=== PATIENT | female | born 1945 | race Caucasian/White ===

== ENCOUNTER 2017-11-25 15:13 | Emergency (ER) | payer MEDICARE, OTHER ==
[2017-11-25 15:35] VITALS: BP 141/63
--- NOTE | 2017-11-25 17:19 | ED Physician Documentation ---
PD HPI URI - Stated complaint Stated Complaint: COUGH,DRY MOUTH,TIRED - Chief complaint Chief Complaint: Resp - History obtained from History obtained from: Patient - History of Present Illness Timing - onset: How many months ago (1) Timing duration: Months (1) Timing details: Gradual onset (has had cough for a month, and was on 2 different abx for it (finishing doxy now) without improvement. No steroids. no inhaler. Still having cough and feeling wheezing.) Associated symptoms: Dry cough, Dyspnea. No: Fever, Chills, NVD Contributing factors: No: Sick contact, Travel Recently seen: Clinic (was given abx for her cough, had zpack without improvement, and now on Doxy.) Review of Systems Constitutional: denies: Fever Nose: denies: Rhinorrhea / runny nose, Congestion Throat: denies: Sore throat Cardiac: denies: Chest pain / pressure Respiratory: reports: Dyspnea, Cough, Wheezing GI: denies: Nausea, Vomiting, Diarrhea Skin: denies: Rash, Lesions PD PAST MEDICAL HISTORY - Past Medical History Cardiovascular: Atrial fibrillation Endocrine/Autoimmune: Type 2 diabetes GI: GERD - Past Surgical History Past Surgical History: Yes Ortho: Knee replacement HEENT: Tonsil/Adenoidectomy - Present Medications Home Medications: Ambulatory Orders Medication Instructions Recorded Confirmed Albuterol Sulf [Ventolin Hfa 1 - 2 puffs INH Q4HR PRN #1 inhaler 11/25/17 Inhaler] Benzonatate [Tessalon] 100 mg PO TID PRN #25 capsule 11/25/17 Cephalexin [Keflex] 500 mg PO DAILY 11/25/17 11/25/17 Dexamethasone [Decadron] 4 mg PO DAILY #5 tablet 11/25/17 Estradiol [Yuvafem] 1 tab PO TID 11/25/17 11/25/17 Flecainide [Tambocar] 100 mg PO BID 11/25/17 11/25/17 Fluocinonide 1 applic PO BID 11/25/17 11/25/17 Levothyroxine Sodium [Synthroid] 90 mg PO DAILY 11/25/17 11/25/17 Omeprazole [PriLOSEC] 20 mg PO DAILY 11/25/17 11/25/17 Pilocarpine HCl [Salagen] 1 mg PO BID 11/25/17 11/25/17 diltiaZEM [Cardizem] 180 mg PO DAILY 11/25/17 11/25/17 guaiFENesin/CODEINE [Robitussin AC] 10 ml PO Q6H PRN #240 ml 11/25/17 metFORMIN [Glucophage] 1,000 mg PO BID 11/25/17 11/25/17 - Allergies Allergies/Adverse Reactions: Allergies Allergy/AdvReac Type Severity Reaction Status Date / Time Sulfa (Sulfonamide Allergy Rash Verified 11/25/17 15:35 Antibiotics) - Social History Does the pt smoke?: No Smoking Status: Never smoker Does the pt drink ETOH?: No Does the pt have substance abuse?: No PD ED PE NORMAL - Vitals Vital signs reviewed: Yes - General General: Alert and oriented X 3, No acute distress, Well developed/nourished - HEENT HEENT: Ears normal, Pharynx benign - Neck Neck: Supple, no meningeal sign, No adenopathy - Cardiac Cardiac: RRR, No murmur - Respiratory Respiratory: No: Clear bilaterally (some mild faint tissue paper sound c/w fibrosis, and some exp wheezing as well. ) - Derm Derm: Normal color, Warm and dry - Extremities Extremities: No tenderness to palpate, No edema, No calf tenderness / cord Results - Vitals Vitals: Oxygen O2 Source Room air PD MEDICAL DECISION MAKING - ED course Complexity details: reviewed results, considered differential (sounds like URI with some wheeziness but could be sounds from the fibrosis. Does not appear ill. Unlabored breathing. ), d/w patient Departure - Departure Disposition: 01 Home, Self Care Clinical Impression: Pulmonary fibrosis Upper respiratory infection Qualifiers: URI type: unspecified URI Qualified Code(s): J06.9 - Acute upper respiratory infection, unspecified Condition: Stable Record reviewed to determine appropriate education?: Yes Instructions: ED URI Viral W Wheezing Prescriptions: Albuterol Sulf [Ventolin Hfa Inhaler] 1 - 2 puffs INH Q4HR PRN #1 inhaler PRN Reason: Shortness Of Air/Wheezing Benzonatate [Tessalon] 100 mg PO TID PRN #25 capsule PRN Reason: Cough Dexamethasone [Decadron] 4 mg PO DAILY #5 tablet guaiFENesin/CODEINE [Robitussin AC] 10 ml PO Q6H PRN #240 ml PRN Reason: Cough Comments: Drink lots of fluids. You can finish out the doxycycline antibiotic you are on. However this may be either viral or just inflammatory at this point. Use albuterol inhaler 2 puffs 4 times a day for the next 7-10 days. Use steroid dexamethasone daily for 5 days more. For the cough use Tessalon Perles and/or codeine cough medicine. Recheck if not improving over the next several days. Discharge Date/Time: 11/25/17 18:37
[2017-11-25] MEDS ORDERED: DEXAMETHASONE 10 MG/ML VIAL PO STA (17:45)
[2017-11-25] MEDS ORDERED: ALBUTEROL NEB 2.5 MG/3 ML INH STA (17:45)
[2017-11-25] MEDS ORDERED: guaiFENesin/CODEINE 5 ML UDC PO STA (17:45)
[2017-11-25] MEDS ORDERED: BENZONATATE 100 MG CAPSULE PO STA (17:45)
== END 2017-11-25 18:37 | disposition home or self-care (01) ==
LOC: ED 15:13
DX: J84.10 Pulmonary fibrosis, unspecified (principal); J06.9 Acute upper respiratory infection, unspecified; E11.9 Type 2 diabetes mellitus without complications; Z79.84 Long term (current) use of oral hypoglycemic drugs; Z96.659 Presence of unspecified artificial knee joint
CPT/HCPCS: 99283; A9270; J7613

== ENCOUNTER 2017-12-16 13:41 | Emergency (ER) | payer MEDICARE, OTHER ==
[2017-12-16 13:56] VITALS: BP 131/59
[2017-12-16] MEDS ORDERED: TETANUS/DIPHTHERIA/PERTUSSIS 0.5 ML SYRINGE IM ONE (15:18)
--- NOTE | 2017-12-16 15:21 | ED Physician Documentation ---
History of Present Illness - Stated complaint Stated Complaint: R LEG PX - Chief complaint Chief Complaint: Trauma Ext - Additonal information Additional information: hx from pt 72 f chronically on keflex for recurrent UTI also just finished doxy and then zmax and medrol dose pack for resp infection has suffered a skin tear to lat R calf and now it is red and swollen has had cellulitis before fears it it will spread and seed her prosthetic knee also would like albuterol and tessalon refill Review of Systems Constitutional: denies: Fever Cardiac: denies: Chest pain / pressure Respiratory: denies: Cough (improved) Skin: reports: Lesions PD PAST MEDICAL HISTORY - Past Medical History Cardiovascular: Atrial fibrillation Endocrine/Autoimmune: Type 2 diabetes GI: GERD - Past Surgical History Past Surgical History: Yes Ortho: Knee replacement HEENT: Tonsil/Adenoidectomy - Present Medications Home Medications: Ambulatory Orders Medication Instructions Recorded Confirmed Albuterol Sulf [Ventolin Hfa 1 - 2 puffs INH Q4HR PRN #1 inhaler 11/25/17 Inhaler] Benzonatate [Tessalon] 100 mg PO TID PRN #25 capsule 11/25/17 Cephalexin [Keflex] 500 mg PO DAILY 11/25/17 11/25/17 Flecainide [Tambocar] 100 mg PO BID 11/25/17 11/25/17 Fluocinonide 1 applic PO BID 11/25/17 11/25/17 Levothyroxine Sodium [Synthroid] 90 mg PO DAILY 11/25/17 11/25/17 Omeprazole [PriLOSEC] 20 mg PO DAILY 11/25/17 11/25/17 Pilocarpine HCl [Salagen] 1 mg PO BID 11/25/17 11/25/17 diltiaZEM [Cardizem] 180 mg PO DAILY 11/25/17 11/25/17 guaiFENesin/CODEINE [Robitussin AC] 10 ml PO Q6H PRN #240 ml 11/25/17 metFORMIN [Glucophage] 1,000 mg PO BID 11/25/17 11/25/17 Albuterol Sulfate [Proair Hfa 2 puffs INH Q4H PRN #1 inhaler 12/16/17 Inhaler] Benzonatate [Tessalon] 100 mg PO TID PRN #20 capsule 12/16/17 Clindamycin [Cleocin] 300 mg PO Q6H 7 Days capsule 12/16/17 Mupirocin Calcium [Bactroban] 1 applic TP BID #30 cream..g. 12/16/17 - Allergies Allergies/Adverse Reactions: Allergies Allergy/AdvReac Type Severity Reaction Status Date / Time Sulfa (Sulfonamide Allergy Rash Verified 11/25/17 15:35 Antibiotics) - Social History Does the pt smoke?: No Smoking Status: Never smoker Does the pt drink ETOH?: No Does the pt have substance abuse?: No - Immunizations Immunizations are current?: Yes - POLST Patient has POLST: No PD ED PE NORMAL - Vitals Vital signs reviewed: Yes - Cardiac Cardiac: RRR - Respiratory Respiratory: No respiratory distress, Clear bilaterally - Extremities Extremities: Other (two skin tears lat R calf without dc and with small surrounding erythema) Results - Vitals Vitals: Vital Signs - 24 hr 12/16/17 13:52 Temperature 36.3 C L Heart Rate 72 Respiratory 16 Rate Blood Pressure 131/59 H O2 Saturation 99 Oxygen O2 Source Room air PD MEDICAL DECISION MAKING - ED course ED course: infection despite being on keflex no hx MRSA and all to sulfa fluoroquinolones now black box and pt states they dont work for her will try bactroban topical and back up PO clinda + probitoic cultured wound as well Departure - Departure Disposition: 01 Home, Self Care Clinical Impression: Infected skin tear Condition: Good Instructions: ED Infec Skin Cellulitis Prescriptions: Albuterol Sulfate [Proair Hfa Inhaler] 2 puffs INH Q4H PRN #1 inhaler PRN Reason: Shortness Of Air/Wheezing Benzonatate [Tessalon] 100 mg PO TID PRN #20 capsule PRN Reason: to ease cough Clindamycin [Cleocin] 300 mg PO Q6H 7 Days capsule Mupirocin Calcium [Bactroban] 1 applic TP BID #30 cream..g. Comments: Wash the wound with soap and water and then apply the bactroban ointment three times a day. If the infection is clearing, do not take the oral antibiotics. If the infection does not improved by three days - or if getting worse sooner - then start the clindamycin (with a probiotic) Return if worse
== END 2017-12-16 15:50 | disposition home or self-care (01) ==
LOC: ED 13:41
DX: S81.811A Laceration without foreign body, right lower leg, initial encounter (principal); L08.9 Local infection of the skin and subcutaneous tissue, unspecified; X58.XXXA Exposure to other specified factors, initial encounter; Z96.651 Presence of right artificial knee joint; I48.91 Unspecified atrial fibrillation; E11.9 Type 2 diabetes mellitus without complications; Z79.84 Long term (current) use of oral hypoglycemic drugs; K21.9 Gastro-esophageal reflux disease without esophagitis; Z87.440 Personal history of urinary (tract) infections; Z23 Encounter for immunization
CPT/HCPCS: 87070; 87205; 90471; 99283

== ENCOUNTER 2018-05-04 16:10 | Emergency (ER) | payer MEDICARE, OTHER ==
[2018-05-04 16:22] VITALS: BP 133/91
[2018-05-04] MEDS ORDERED: CLINDAMYCIN 150 MG CAPSULE PO STA (16:30)
--- NOTE | 2018-05-04 16:31 | ED Physician Documentation ---
History of Present Illness - Stated complaint Stated Complaint: RT LEG PX - Chief complaint Chief Complaint: Wound - History obtained from History obtained from: Patient - History of Present Illness Timing: How many days ago (2-3) Pain level max: 3 Pain level now: 2 Improved by: nothing Worsened by: nothing - Additonal information Additional information: Patient is a 73-year-old female who presents to the emergency department with right lower extremity redness and pain for the past 2-3 days. States feels similar to her cellulitis in the past. Does have a prosthetic right knee but is not having any right knee pain. No fevers. Denies any recent injury. Review of Systems Constitutional: denies: Fever, Chills GI: denies: Vomiting Skin: denies: Rash Musculoskeletal: denies: Neck pain, Back pain Neurologic: denies: Headache PD PAST MEDICAL HISTORY - Past Medical History Cardiovascular: Atrial fibrillation Endocrine/Autoimmune: Type 2 diabetes GI: GERD - Past Surgical History Past Surgical History: Yes Ortho: Knee replacement HEENT: Tonsil/Adenoidectomy - Present Medications Home Medications: Ambulatory Orders Medication Instructions Recorded Confirmed Albuterol Sulf [Ventolin Hfa 1 - 2 puffs INH Q4HR PRN #1 inhaler 11/25/17 Inhaler] Benzonatate [Tessalon] 100 mg PO TID PRN #25 capsule 11/25/17 Cephalexin [Keflex] 500 mg PO DAILY 11/25/17 11/25/17 Flecainide [Tambocar] 100 mg PO BID 11/25/17 11/25/17 Fluocinonide 1 applic PO BID 11/25/17 11/25/17 Levothyroxine Sodium [Synthroid] 90 mg PO DAILY 11/25/17 11/25/17 Omeprazole [PriLOSEC] 20 mg PO DAILY 11/25/17 11/25/17 Pilocarpine HCl [Salagen] 1 mg PO BID 11/25/17 11/25/17 diltiaZEM [Cardizem] 180 mg PO DAILY 11/25/17 11/25/17 guaiFENesin/CODEINE [Robitussin AC] 10 ml PO Q6H PRN #240 ml 11/25/17 metFORMIN [Glucophage] 1,000 mg PO BID 11/25/17 11/25/17 Albuterol Sulfate [Proair Hfa 2 puffs INH Q4H PRN #1 inhaler 12/16/17 Inhaler] Benzonatate [Tessalon] 100 mg PO TID PRN #20 capsule 12/16/17 Clindamycin [Cleocin] 300 mg PO Q6H 7 Days capsule 12/16/17 Mupirocin Calcium [Bactroban] 1 applic TP BID #30 cream..g. 12/16/17 Clindamycin HCl [Clindamycin 300MG 300 mg PO Q6H #28 capsule 05/04/18 CAP] - Allergies Allergies/Adverse Reactions: Allergies Allergy/AdvReac Type Severity Reaction Status Date / Time Sulfa (Sulfonamide Allergy Rash Verified 11/25/17 15:35 Antibiotics) - Social History Does the pt smoke?: No Smoking Status: Never smoker Does the pt drink ETOH?: No Does the pt have substance abuse?: No - Immunizations Immunizations are current?: Yes - POLST Patient has POLST: No PD ED PE NORMAL - Vitals Vital signs reviewed: Yes - General General: Alert and oriented X 3, No acute distress - Derm Derm: Warm and dry - Extremities Extremities: Other (R lower extremity - redness and tenderness along the anterior evans. no swelling. no induration. no bony tenderness) - Neuro Neuro: Alert and oriented X 3 Results - Vitals Vitals: Vital Signs - 24 hr 05/04/18 16:13 Temperature 36.1 C L Heart Rate 65 Respiratory 18 Rate Blood Pressure 133/91 H O2 Saturation 99 Oxygen O2 Source Room air PD MEDICAL DECISION MAKING - ED course Complexity details: reviewed old records, considered differential, d/w patient ED course: Patient is a 73-year-old female with right lower extremity cellulitis area and has multiple antibiotic allergies, has responded well to clindamycin in the past. Will place her back on this and see how she progresses. No evidence of infection in the joint in the right knee or in the prosthesis. No fevers. No sepsis. Patient counseled regarding signs and symptoms for which I believe and urgent re-evaluation would be necessary. Patient with good understanding of and agreement to plan and is comfortable going home at this time This document was made in part using voice recognition software. While efforts are made to proofread this document, sound alike and grammatical errors may occur. - Sepsis Event Vital Signs: Vital Signs - 24 hr 05/04/18 16:13 Temperature 36.1 C L Heart Rate 65 Respiratory 18 Rate Blood Pressure 133/91 H O2 Saturation 99 Oxygen O2 Source Room air Departure - Departure Disposition: 01 Home, Self Care Clinical Impression: Cellulitis Qualifiers: Site of cellulitis: extremity Site of cellulitis of extremity: lower extremity Laterality: right Qualified Code(s): L03.115 - Cellulitis of right lower limb Condition: Good Instructions: ED Infec Skin Cellulitis Follow-Up: your,doctor in 1 week [Other] Prescriptions: Clindamycin HCl [Clindamycin 300MG CAP] 300 mg PO Q6H #28 capsule Comments: Take all antibiotics until gone. Return if you worsen. This should improve over the next 24-48 hours Discharge Date/Time: 05/04/18 16:38
== END 2018-05-04 16:38 | disposition home or self-care (01) ==
LOC: ED 16:10
DX: L03.115 Cellulitis of right lower limb (principal); I48.91 Unspecified atrial fibrillation; E11.9 Type 2 diabetes mellitus without complications; K21.9 Gastro-esophageal reflux disease without esophagitis; Z79.84 Long term (current) use of oral hypoglycemic drugs
CPT/HCPCS: 99283; A9270

== ENCOUNTER 2019-01-13 10:54 | Emergency (ER) | payer MEDICARE, OTHER ==
--- NOTE | 2019-01-13 11:02 | ED Physician Documentation ---
PD HPI URI - Stated complaint Stated Complaint: COUGH/CONGESTION AND WEAKNESS - History obtained from History obtained from: Patient - History of Present Illness Timing - onset: How many weeks ago (1) Timing duration: Weeks (1) Timing details: Gradual onset, Still present (had been having congestion cough nausea, and the cough is worsening with productive sputum and wheezing now.) Associated symptoms: Fever, Chills, Nasal congestion, Productive cough, Dyspnea, NVD. No: Ear pain Contributing factors: No: Sick contact, COPD / asthma Similar symptoms before: Has not had sx before Recently seen: Not recently seen Review of Systems Constitutional: reports: Fever, Chills, Myalgias Nose: reports: Congestion. denies: Rhinorrhea / runny nose Throat: denies: Sore throat Cardiac: denies: Chest pain / pressure Respiratory: reports: Dyspnea, Cough, Wheezing GI: reports: Nausea, Vomiting. denies: Diarrhea Skin: denies: Rash, Lesions PD PAST MEDICAL HISTORY - Past Medical History Cardiovascular: Atrial fibrillation Endocrine/Autoimmune: Type 2 diabetes GI: GERD - Past Surgical History Past Surgical History: Yes Ortho: Knee replacement HEENT: Tonsil/Adenoidectomy - Present Medications Home Medications: Ambulatory Orders Medication Instructions Recorded Confirmed Cephalexin [Keflex] 500 mg PO DAILY 11/25/17 11/25/17 Flecainide [Tambocar] 100 mg PO BID 11/25/17 11/25/17 Fluocinonide 1 applic PO BID 11/25/17 11/25/17 Levothyroxine Sodium [Synthroid] 90 mg PO DAILY 11/25/17 11/25/17 Omeprazole [PriLOSEC] 20 mg PO DAILY 11/25/17 11/25/17 Pilocarpine HCl [Salagen] 1 mg PO BID 11/25/17 11/25/17 diltiaZEM [Cardizem] 180 mg PO DAILY 11/25/17 11/25/17 metFORMIN [Glucophage] 1,000 mg PO BID 11/25/17 11/25/17 Albuterol Sulfate [Proair Hfa 2 puffs INH Q4H PRN #1 inhaler 12/16/17 Inhaler] Albuterol Sulf [Ventolin Hfa 2 - 3 puffs INH Q4HR PRN #1 inhaler 01/13/19 Inhaler] Benzonatate [Tessalon Perle] 100 mg PO TID PRN #25 capsule 01/13/19 Dexamethasone [Decadron] 4 mg PO DAILY #5 tablet 01/13/19 Doxycycline Hyclate 100 mg PO BID #20 capsule 01/13/19 Estrogens, Conjugated [Premarin] 0 mg PO 01/13/19 Ondansetron Odt [Zofran] 4 mg TL Q6H PRN #15 tablet 01/13/19 - Allergies Allergies/Adverse Reactions: Allergies Allergy/AdvReac Type Severity Reaction Status Date / Time Sulfa (Sulfonamide Allergy Rash Verified 11/25/17 15:35 Antibiotics) NSAIDS (Non-Steroidal AdvReac Unknown Verified 01/13/19 11:06 Anti-Inflamma - Social History Does the pt smoke?: No Smoking Status: Never smoker Does the pt drink ETOH?: No Does the pt have substance abuse?: No - Immunizations Immunizations are current?: Yes - POLST Patient has POLST: No PD ED PE NORMAL - Vitals Vital signs reviewed: Yes - General General: Alert and oriented X 3, Well developed/nourished - HEENT HEENT: Pharynx benign - Neck Neck: Supple, no meningeal sign, No adenopathy - Cardiac Cardiac: RRR, No murmur - Respiratory Respiratory: No: Clear bilaterally (central congestion with diffuse mild wheezing. ) - Abdomen Abdomen: Soft, Non tender - Derm Derm: Normal color, Warm and dry - Extremities Extremities: No deformity, No tenderness to palpate, Normal ROM s pain, No edema, No calf tenderness / cord - Neuro Neuro: Alert and oriented X 3, No motor deficit, Normal speech Results - Vitals Vitals: Oxygen O2 Source Room air - Labs Labs: Laboratory Tests 01/13/19 12:00 Influenza A (Rapid) Negative Influenza B (Rapid) Negative - Rads (name of study) chest xray Radiology: Prelim report reviewed (chronic scarring; no acute infiltrate. ) PD MEDICAL DECISION MAKING - ED course Complexity details: considered differential, d/w patient Departure - Departure Disposition: 01 Home, Self Care Clinical Impression: Flu-like symptoms Bronchitis, acute Qualifiers: Bronchitis organism: unspecified organism Qualified Code(s): J20.9 - Acute bronchitis, unspecified Condition: Stable Record reviewed to determine appropriate education?: Yes Instructions: ED Upper Resp Infec Abx Tx Prescriptions: Albuterol Sulf [Ventolin Hfa Inhaler] 2 - 3 puffs INH Q4HR PRN #1 inhaler PRN Reason: Shortness Of Air/Wheezing Benzonatate [Tessalon Perle] 100 mg PO TID PRN #25 capsule PRN Reason: Cough Dexamethasone [Decadron] 4 mg PO DAILY #5 tablet Doxycycline Hyclate 100 mg PO BID #20 capsule Ondansetron Odt [Zofran] 4 mg TL Q6H PRN #15 tablet PRN Reason: Nausea / Vomiting Comments: This may likely be a viral illness and even sounds flulike. You do have a lot of bronchial symptoms but your chest x-ray is clear without signs of pneumonia. We will treat you with an albuterol inhaler 2-3 puffs 4 times a day for wheezing and cough. Decadron steroid anti-inflammatory to help reduce bronchial inflammation over the next 5 days. Tessalon if needed for cough. This may be viral but you do have the bronchial symptoms so we will add an antibiotic doxycycline twice a day for a week. Ondansetron if needed for nausea. Stay well-hydrated. Tylenol if needed for fevers or pains. Recheck if not improving over the next several days to week or so. Discharge Date/Time: 01/13/19 14:07
[2019-01-13] MEDS ORDERED: BENZONATATE 100 MG CAPSULE PO STA (11:42)
[2019-01-13] MEDS ORDERED: ALBUTEROL NEB 2.5 MG/3 ML INH STA (11:42)
[2019-01-13] MEDS ORDERED: DEXAMETHASONE 10 MG/ML VIAL PO STA (11:42)
[2019-01-13] MEDS ORDERED: CHERRY SYRUP 10 ML UDC PO ONE (12:04)
--- NOTE | 2019-01-13 13:28 | XRAY Report ---
Reason: cough and congestion for a week Procedure Date: 01/13/2019 Accession Number: [id number] / [id number] Procedure: XR - Chest 2 View X-Ray CPT Code: 06632 FULL RESULT: EXAM: CHEST RADIOGRAPHY EXAM DATE: 01/13/2019 12:59 PM. CLINICAL HISTORY: Cough and congestion for a week. COMPARISON: [facility] W/PA CHEST LT 05/03/2014 9:38 AM. TECHNIQUE: 2 views. FINDINGS: Lungs/Pleura: There are moderate peripheral coarse reticular opacities. The lungs appear without significant change. Lung volumes appear normal and symmetric. No consolidation. Negative for pleural effusion and pneumothorax. Mediastinum: The heart size is normal. There is mild atherosclerotic calcification of the aortic arch. Other: None. IMPRESSION: 1. Findings of chronic lung disease with peripheral scarring or interstitial lung disease appearing without significant change on radiograph compared with 05/03/2014. [facility]
[2019-01-13 14:07] VITALS: BP 126/60
== END 2019-01-13 14:07 | disposition home or self-care (01) ==
LOC: ED 10:54
DX: J20.9 Acute bronchitis, unspecified (principal); R09.81 Nasal congestion; E11.9 Type 2 diabetes mellitus without complications; Z79.84 Long term (current) use of oral hypoglycemic drugs
CPT/HCPCS: 71046; 87275; 87276; 94640; 99283; A9270

== ENCOUNTER 2019-12-31 05:40 | Outpatient (CLI) | payer MEDICARE, OTHER | END 2019-12-31 05:41 | disposition critical access hospital (66) | LOC: EMS 05:40 | PROVIDERS: ATTEND Surgery | DX: S01.81XA Laceration without foreign body of other part of head, initial encounter (principal); W01.190A Fall on same level from slipping, tripping and stumbling with subsequent striking against furniture, initial encounter; Y92.003 Bedroom of unspecified non-institutional (private) residence as the place of occurrence of the external cause | CPT/HCPCS: A0425; A0429 ==

== ENCOUNTER 2019-12-31 06:07 | Emergency (ER) | payer MEDICARE, OTHER ==
--- NOTE | 2019-12-31 06:24 | ED Physician Documentation ---
<Luis Eduardo An - Last Filed: 12/31/19 12:18> History of Present Illness - Stated complaint Stated Complaint: FALL - Additonal information Additional information: 74-year-old diabetic female rolled out of bed this morning lacerating her forehead on the corner of a [employer] countertop. She denies any loss of consciousness he denies any neck pain she denies any dizziness or nausea. She does have diabetes and gets up frequently to urinate. She was able to control the bleeding with direct pressure as a large laceration to the forehead extending into the hairline from just above the eyebrow. Review of Systems Constitutional: denies: Fever Eyes: denies: Decreased vision Nose: denies: Rhinorrhea / runny nose Throat: denies: Sore throat Cardiac: reports: Chest pain / pressure Respiratory: denies: Cough GI: denies: Nausea, Vomiting : reports: Frequency Neurologic: denies: Generalized weakness, Focal weakness, Numbness Endocrine: reports: Polydypsia, Polyuria PD PAST MEDICAL HISTORY - Present Medications Home Medications: Ambulatory Orders Medication Instructions Recorded Confirmed Cephalexin [Keflex] 500 mg PO DAILY 11/25/17 12/31/19 Flecainide [Tambocar] 100 mg PO BID 11/25/17 12/31/19 Fluocinonide 1 applic PO BID 11/25/17 12/31/19 Levothyroxine Sodium [Synthroid] 90 mg PO DAILY 11/25/17 12/31/19 Omeprazole [PriLOSEC] 20 mg PO BID 11/25/17 12/31/19 Pilocarpine HCl [Salagen] 5 mg PO BID 11/25/17 12/31/19 diltiaZEM [Cardizem] 180 mg PO DAILY 11/25/17 12/31/19 metFORMIN [Glucophage] 1,000 mg PO BID 11/25/17 12/31/19 Estrogens, Conjugated [Premarin] 0.9 mg PO DAILY 01/13/19 12/31/19 Ciprofloxacin HCl [Cipro] 500 mg PO BID #14 tablet 12/31/19 - Allergies Allergies/Adverse Reactions: Allergies Allergy/AdvReac Type Severity Reaction Status Date / Time Sulfa (Sulfonamide Allergy Rash Verified 12/31/19 06:18 Antibiotics) NSAIDS (Non-Steroidal AdvReac Unknown Verified 12/31/19 06:18 Anti-Inflamma PD ED PE NORMAL - Vitals Vital signs reviewed: Yes (hypertensive ) - General General: Alert and oriented X 3, No acute distress, Well developed/nourished, Other (74 y/o female with a long impressive laceration to the forehead ) - Respiratory Respiratory: No respiratory distress - Derm Derm: Normal color, Warm and dry, No rash - Extremities Extremities: No deformity - Neuro Neuro: Alert and oriented X 3, stunt person 2-12 intact, No motor deficit, No sensory deficit, Normal speech Eye Opening: Spontaneous Motor: Obeys Commands Verbal: Oriented GCS Score: 15 - Psych Psych: Normal mood, Normal affect Results - Rads (name of study) CT cervical spine w/o Radiology: Prelim report reviewed (Impression: No acute abnormality. Multilevel degenerative disc disease, spondylolysis, and facet joint degenerative disease. Degenerative changes of the anterior atlantoaxial joint. 2 mm degenerative anterolisthesis of C3 on C4 and C7 on T1. Atherosclerosis at the left carotid bifurcation.), EMP read indepedently, See rad report CT head without Radiology: Prelim report reviewed (Impression: No acute intracranial abnormality. Cerebral atrophy within the broad range of normal for the age group. Right forehead subcutaneous hematoma.), EMP read indepedently, See rad report chest Radiology: Prelim report reviewed (Impression: 1. No acute active cardiopulmonary disease. 2. Chronic parenchymal findings.), EMP read indepedently, See rad report Procedures - Laceration (location) face Length in cm: 18 (15cm +3cm) Wound type: Curved, Flap, Into muscle, Clean Neurovascular status: Sensory intact, Motor intact, Vascular intact Anesthesia: Lidocaine 1%, With bicarb Wound Preparation: Hibiclens, Irrigated copiously NS, Wound explored, To the base, Multiple flaps aligned Skin layer closure: Nylon, Interrupted, Running, Size #-0 - enter number (6-0) Other: Patient tolerated well, Neurovascular intact, Dressing applied, Tetanus booster given Complexity: Simple - IVC sono (time) 0720 Bedside IVC sono: IVC measures (cm) (0.79), IVC collapsed c insp (cm) (c omplete), Dehydration (est 2+ liter deficit) Departure - Departure Disposition: 01 Home, Self Care Clinical Impression: Dehydration Complex laceration of face Qualifiers: Encounter type: initial encounter Qualified Code(s): S01.91XA - Laceration without foreign body of unspecified part of head, initial encounter Urinary tract infection Qualifiers: Urinary tract infection type: acute cystitis Hematuria presence: without hematuria Qualified Code(s): N30.00 - Acute cystitis without hematuria Condition: Stable Instructions: ED Dehydration, ED Laceration Facial Sutr Tape, ED UTI Cystitis Female Follow-Up: [facility] [Provider Group] Prescriptions: Ciprofloxacin HCl [Cipro] 500 mg PO BID #14 tablet Discharge Date/Time: 12/31/19 12:23 <Ramirez Bardales - Last Filed: 01/01/20 02:13> History of Present Illness - History obtained from History obtained from: Patient (the patient is a 74 y/o f who takes aspirin daily presents via EMS for head trauma. patient reports she got out of bed to use the bathroom and tripped and fell and hit her head on a night stand. she is unsure if she lost consciousness or not, she reports a large forehead laceration. she reports some mild chest discomfort as well.), EMS Review of Systems Constitutional: reports: Reviewed and negative Eyes: reports: Reviewed and negative Ears: reports: Reviewed and negative Nose: reports: Reviewed and negative Throat: reports: Reviewed and negative Cardiac: reports: Chest pain / pressure Respiratory: reports: Reviewed and negative GI: reports: Reviewed and negative : reports: Reviewed and negative Skin: reports: Laceration (s) Musculoskeletal: reports: Neck pain Neurologic: reports: Reviewed and negative Psychiatric: reports: Reviewed and negative Endocrine: reports: Reviewed and negative Immunocompromised: reports: Reviewed and negative PD PAST MEDICAL HISTORY - Past Medical History Cardiovascular: Atrial fibrillation Respiratory: Pneumonia Endocrine/Autoimmune: Type 2 diabetes GI: GERD - Past Surgical History Past Surgical History: Yes Ortho: Knee replacement HEENT: Tonsil/Adenoidectomy - Social History Does the pt smoke?: No Smoking Status: Never smoker Does the pt drink ETOH?: No Does the pt have substance abuse?: No - Immunizations Immunizations are current?: Yes - POLST Patient has POLST: No PD ED PE NORMAL - Vitals Vital signs reviewed: Yes - General General: Alert and oriented X 3, No acute distress, Other (large forehead laceration with dressing and bandage on currently, unable to give exact details as a pressure dressing is currenlty on the patient. ) - HEENT HEENT: PERRL, EOMI, Other (large forehead laceration with dressing and bandage on currently, unable to give exact details as a pressure dressing is currenlty on the patient. ) - Neck Neck: Other (there is some ttp over the midline cervical spine, no stepoffs or deformities) - Cardiac Cardiac: RRR, No murmur, Strong equal pulses - Respiratory Respiratory: No respiratory distress, Clear bilaterally - Abdomen Abdomen: Normal bowel sounds, Soft, Non tender, Non distended, No organomegaly, Other (no midline abd pulsatile mass) - Back Back: No CVA TTP, No spinal TTP - Derm Derm: Warm and dry, Other (large forehead laceration with dressing and bandage on currently, unable to give exact details as a pressure dressing is currenlty on the patient. ) - Extremities Extremities: No deformity - Neuro Neuro: Alert and oriented X 3, stunt person 2-12 intact, No motor deficit, No sensory deficit, Normal speech - Psych Psych: Normal mood, Normal affect Results - Vitals Vitals: Vital Signs - 24 hr 12/31/19 12/31/19 12/31/19 06:14 07:02 09:20 Temperature 36.5 C Heart Rate 66 81 61 Respiratory 16 17 18 Rate Blood Pressure 158/67 H 116/80 154/73 H O2 Saturation 100 99 97 12/31/19 11:38 Temperature Heart Rate 70 Respiratory 18 Rate Blood Pressure 161/75 H O2 Saturation 100 Oxygen O2 Source Room air - EKG (time done) 06:47 Rate: Rate (enter#) (62), Other (no stemi) Rhythm: NSR [place]: Normal Intervals: Other ([place] 201) QRS: Poor R wave progression Ischemia: Non specific changes - Labs Labs: Laboratory Tests 12/31/19 12/31/19 12/31/19 06:20 06:20 06:20 WBC 10.7 RBC 4.40 Hgb 13.3 Hct 40.7 MCV 92.5 MCH 30.2 MCHC 32.7 RDW 13.6 Plt Count 296 MPV 8.4 Neut # (Auto) 7.0 H Lymph # (Auto) 2.1 [place] # (Auto) 0.9 Eos # (Auto) 0.5 Baso # (Auto) 0.1 Absolute Nucleated RBC 0.00 Nucleated RBC % 0.0 PT 12.3 INR 1.1 APTT 24.6 L Sodium 134 L Potassium 4.2 Chloride 97 L Carbon Dioxide 21 Anion Gap 16.0 H BUN 26 H Creatinine 1.1 H Estimated GFR (MDRD) 48 L Glucose 243 H Calcium 9.9 Troponin I High Sens Urine Color Urine Clarity Urine pH Ur Specific [place] Urine Protein Urine Glucose (UA) Urine Ketones Urine Occult Blood Urine Nitrite Urine Bilirubin Urine Urobilinogen Ur Leukocyte Esterase Urine RBC Urine WBC Urine WBC Clumps Ur Squamous Epith Cells Urine Bacteria Ur Microscopic Review Urine Culture Comments 12/31/19 12/31/19 06:20 10:40 WBC RBC Hgb Hct MCV MCH MCHC RDW Plt Count MPV Neut # (Auto) Lymph # (Auto) [place] # (Auto) Eos # (Auto) Baso # (Auto) Absolute Nucleated RBC Nucleated RBC % PT INR APTT Sodium Potassium Chloride Carbon Dioxide Anion Gap BUN Creatinine Estimated GFR (MDRD) Glucose Calcium Troponin I High Sens 4.3 Urine Color YELLOW Urine Clarity HAZY Urine pH 7.5 Ur Specific [place] 1.010 Urine Protein NEGATIVE Urine Glucose (UA) 100 H Urine Ketones NEGATIVE Urine Occult Blood TRACE-INTA Urine Nitrite NEGATIVE Urine Bilirubin NEGATIVE Urine Urobilinogen 0.2 (NORMAL) Ur Leukocyte Esterase MODERATE H Urine RBC 0-5 Urine WBC >25 H Urine WBC Clumps PRESENT Ur Squamous Epith Cells RARE Squamous Urine Bacteria Rare Ur Microscopic Review INDICATED Urine Culture Comments INDICATED PD MEDICAL DECISION MAKING - ED course Complexity details: other (patient signed out at shift change to Dr. An)
[2019-12-31 06:27] LABS: BASOPHILS # (AUTO) 0.1 10^3/uL (0.0-0.1); BASOPHILS % (AUTO) 1.3 %; EOSINOPHILS # (AUTO) 0.5 10^3/uL (0.0-0.7); EOSINOPHILS % (AUTO) 4.4 %; HGB - HEMOGLOBIN 13.3 g/dL (12.0-16.0); LYMPHOCYTES # (AUTO) 2.1 10^3/uL (1.5-3.5); LYMPHOCYTES % (AUTO) 19.7 %; MEAN CORPUSCULAR HEMOGLOBIN 30.2 pg (27.0-31.0); MEAN CORPUSCULAR HGB CONC 32.7 g/dL (32.0-36.0); MEAN CORPUSCULAR VOLUME 92.5 fL (81.0-99.0); MEAN PLATELET VOLUME 8.4 fL (7.9-10.8); MONOCYTES # (AUTO) 0.9 10^3/uL (0.0-1.0); MONOCYTES % (AUTO) 8.5 %; NEUTROPHILS % (AUTO) 65.4 %; PLT - PLATELET COUNT 296 10^3/uL (130-450); RED CELL DISTRIBUTION WIDTH 13.6 % (12.0-15.0); WHITE BLOOD COUNT 10.7 x10^3/uL (4.8-10.8)
[2019-12-31 06:33] LABS: INR 1.1 (0.8-1.2); PT - PROTHROMBIN TIME 12.3 secs (9.9-12.6)
[2019-12-31 06:37] LABS: CALCIUM 9.9 mg/dL (8.5-10.3); CREATININE 1.1 mg/dL (0.4-1.0)
[2019-12-31 06:40] LABS: PARTIAL THROMBOPLASTIN TIME 24.6 secs (24.9-33.3)
--- NOTE | 2019-12-31 07:17 | CT Report ---
Reason: fall head injury Procedure Date: 12/31/2019 Accession Number: [id number] / [id number] Procedure: CT - HEAD WO CPT Code: Final Report FULL RESULT: EXAM: CT HEAD WITHOUT IV CONTRAST EXAM DATE: 12/31/2019. CLINICAL HISTORY: Head injury. Fell out of bed striking the forehead on the night stand it. COMPARISON: None. TECHNIQUE: Multiaxial CT images were obtained from the foramen magnum to the vertex. Reformats: Sagittal and coronal. IV contrast: None. In accordance with CT protocol optimization, one or more of the following dose reduction techniques were utilized for this exam: automated exposure control, adjustment of mA and/or KV based on patient size, or use of iterative reconstructive technique. FINDINGS: Parenchyma: The ventricles and the sulci are enlarged, within the broad range of normal for patient age. No intraparenchymal hemorrhage. No evidence of mass, midline shift, or CT findings of infarction. Coello-white differentiation is distinct. Extraaxial Spaces: No hemorrhage or mass demonstrated. Sinuses: The included sinuses are clear. The mastoids are normally aerated. Bones: No evidence of fracture or calvarial defect. Soft Tissues: Right forehead subcutaneous hematoma. IMPRESSION: No acute intracranial abnormality. Cerebral atrophy within the broad range of normal for the age group. Right forehead subcutaneous hematoma. RADIA
[2019-12-31] MEDS ORDERED: SODIUM CHLORIDE 0.9% 1,000 ML IV ONE (07:25)
[2019-12-31] MEDS ORDERED: BUFFERED LIDOCAINE 10 ML SYRINGE SUBQ STA (07:25)
--- NOTE | 2019-12-31 07:25 | CT Report ---
Reason: fall head injury Procedure Date: 12/31/2019 Accession Number: [id number] / [id number] Procedure: CT - CERVICAL SPINE WO CPT Code: Final Report FULL RESULT: EXAM: CT CERVICAL SPINE WITHOUT IV CONTRAST DATE: 12/31/2019 06:45 AM. HISTORY: Injury. Fell out of bed striking her head on a nightstand. COMPARISONS: None. TECHNIQUE: Thin-section axial images were acquired of the cervical spine without contrast. Post-processing: Coronal and sagittal reformats. Other: None. In accordance with CT protocol optimization, one or more of the following dose reduction techniques were utilized for this exam: automated exposure control, adjustment of mA and/or KV based on patient size, or use of iterative reconstructive technique. FINDINGS: Alignment: 2 mm degenerative anterolisthesis of C3 on C4 and C7 on T1 secondary to facet joint degenerative disease. Bones: No fracture or bone lesion. Disks: Moderate narrowing and anterior and posterior vertebral body osteophytes at C5-C6 and C6-C7. Mild narrowing and small osteophytes at C3-C4 and C4-C5. Facets: Narrowing or spurring at all levels on the right and from C2-C5 and at C7-T1 on the left. Other: Normal prevertebral soft tissues. The lung apices are clear. Narrowing and spurring of the anterior atlantoaxial joint. Atherosclerosis at the left carotid bifurcation. 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 IMPRESSION: No acute abnormality. Multilevel degenerative disk disease, spondylosis, and facet joint degenerative disease. Degenerative changes of the anterior atlantoaxial joint. 2 mm degenerative anterolisthesis of C3 3 on C4 and C7 on T1. Atherosclerosis at the left carotid bifurcation. RADIA
--- NOTE | 2019-12-31 07:25 | XRAY Report ---
Reason: chest pain Procedure Date: 12/31/2019 Accession Number: [id number] / [id number] Procedure: XR - Chest 1 View X-Ray CPT Code: 76770 Final Report FULL RESULT: EXAM: CHEST RADIOGRAPHY EXAM DATE: 12/31/2019 06:50 AM. CLINICAL HISTORY: Chest pain. COMPARISON: CHEST 2 VIEW 01/13/2019 12:44 PM. TECHNIQUE: 1 view. FINDINGS: Lungs/Pleura: Areas of scarring bilaterally, increased interstitial markings No focal opacities evident. No pleural effusion. No pneumothorax. Mediastinum: Within exam limitations, the cardiomediastinal contour is normal. Other: None. IMPRESSION: 1. No active cardiopulmonary disease. 2. Chronic parenchymal findings RADIA
[2019-12-31] MEDS ORDERED: BUFFERED LIDOCAINE 10 ML SYRINGE ONE (07:51)
[2019-12-31] MEDS ORDERED: BACITRACIN ZINC OINT 1 PACKET TOP STA (09:35)
[2019-12-31 10:50] LABS: BILIRUBIN,URINE NEGATIVE (NEGATIVE); GLUCOSE, URINE (UA) 100 mg/dL (NEGATIVE); KETONES,URINE (UA) NEGATIVE (NEGATIVE); LEUKOCYTE ESTERASE, URINE MODERATE (NEGATIVE); NITRITE,URINE NEGATIVE (NEGATIVE); OCCULT BLOOD,URINE TRACE-INTA (NEGATIVE); PH,URINE 7.5 PH (5.0-7.5); PROTEIN,URINE NEGATIVE (NEGATIVE); UROBILINOGEN,URINE 0.2 (NORMAL) E.U./dL (NORMAL)
[2019-12-31 11:01] LABS: BACTERIA,URINE Rare /HPF (None Seen); CLARITY,URINE HAZY (CLEAR); RBC,URINE 0-5 /HPF (0-5); SQUAMOUS EPITHELIAL CELL,UR RARE Squamous (<= Few); WBC CLUMPS,URINE PRESENT
[2019-12-31] MEDS ORDERED: cefTRIAXone 1 GM in SODIUM CHLORIDE 0.9% MINIBAG 100 ML IV STA (11:11)
[2019-12-31 11:40] VITALS: BP 161/75
== END 2019-12-31 12:23 | disposition home or self-care (01) ==
LOC: EDUNIT# → ED 06:07
DX: S01.81XA Laceration without foreign body of other part of head, initial encounter (principal); W01.190A Fall on same level from slipping, tripping and stumbling with subsequent striking against furniture, initial encounter; Y93.01 Activity, walking, marching and hiking; Y92.003 Bedroom of unspecified non-institutional (private) residence as the place of occurrence of the external cause; R07.9 Chest pain, unspecified; E86.0 Dehydration; N30.00 Acute cystitis without hematuria; M50.30 Other cervical disc degeneration, unspecified cervical region; M47.812 Spondylosis without myelopathy or radiculopathy, cervical region; E11.9 Type 2 diabetes mellitus without complications; Z79.84 Long term (current) use of oral hypoglycemic drugs; Z79.82 Long term (current) use of aspirin
CPT/HCPCS: 12016; 36415; 70450; 71045; 72125; 80048; 81001; 81003; 84484; 85025; 85610; 85730; 87086; 93005; 99284

== ENCOUNTER 2020-01-13 11:26 | Emergency (ER) | payer MEDICARE, OTHER ==
[2020-01-13 11:51] VITALS: BP 126/65
--- NOTE | 2020-01-13 12:42 | ED Physician Documentation ---
PD HPI WOUND RECHECK - Stated complaint Stated Complaint: WOUND CHECK - Chief complaint Chief Complaint: Wound - Histroy obtained from History obtained from: Patient - History of Present Illness Location: Face (persistent hematoma and some drainage from forehead wound.), Forehead Timing - onset: How many days ago (10) Associated symptoms: Swelling, Drainage (one spot of lac has intermittent oozin of dark watery blood.). No: Fever, Redness Recently seen: Emergency Dept (fell and lacerated forehead with large lac, sutured in ER. Had hematoma of the face to right side of lac. Has had healing wound and had sutures out few days ago. Has had persistent hematoma with swelling, and is pulling at healing wound.) Review of Systems Constitutional: denies: Fever, Chills Eyes: denies: Loss of vision, Decreased vision Neurologic: denies: Confused, Altered mental status, Headache PD PAST MEDICAL HISTORY - Past Medical History Cardiovascular: Atrial fibrillation Respiratory: Pneumonia Neuro: None Endocrine/Autoimmune: Type 2 diabetes GI: GERD RESIDENT PROGRAMS ASSISTANT: None : None HEENT: None Psych: None Musculoskeletal: None Derm: None - Past Surgical History Past Surgical History: Yes Ortho: Knee replacement /RESIDENT PROGRAMS ASSISTANT: Other HEENT: Tonsil/Adenoidectomy - Present Medications Home Medications: Ambulatory Orders Medication Instructions Recorded Confirmed Cephalexin [Keflex] 500 mg PO DAILY 11/25/17 12/31/19 Flecainide [Tambocar] 100 mg PO BID 11/25/17 12/31/19 Fluocinonide 1 applic PO BID 11/25/17 12/31/19 Levothyroxine Sodium [Synthroid] 90 mg PO DAILY 11/25/17 12/31/19 Omeprazole [PriLOSEC] 20 mg PO BID 11/25/17 12/31/19 Pilocarpine HCl [Salagen] 5 mg PO BID 11/25/17 12/31/19 diltiaZEM [Cardizem] 180 mg PO DAILY 11/25/17 12/31/19 metFORMIN [Glucophage] 1,000 mg PO BID 11/25/17 12/31/19 Estrogens, Conjugated [Premarin] 0.9 mg PO DAILY 01/13/19 12/31/19 Ciprofloxacin HCl [Cipro] 500 mg PO BID #14 tablet 12/31/19 - Allergies Allergies/Adverse Reactions: Allergies Allergy/AdvReac Type Severity Reaction Status Date / Time nitrofurantoin Allergy Unknown Verified 01/13/20 11:51 Sulfa (Sulfonamide Allergy Rash Verified 12/31/19 06:18 Antibiotics) NSAIDS (Non-Steroidal AdvReac Unknown Verified 12/31/19 06:18 Anti-Inflamma - Social History Does the pt smoke?: No Smoking Status: Never smoker Does the pt drink ETOH?: No Does the pt have substance abuse?: No - Immunizations Immunizations are current?: Yes - POLST Patient has POLST: No PD ED PE NORMAL - Vitals Vital signs reviewed: Yes - General General: Alert and oriented X 3, No acute distress, Well developed/nourished - HEENT HEENT: Other (forehead with curved laceration with healing edges most of it, except for middle 2 cm that has some mild oozing of dark bloody watery material with palpation (mild drop of fluid). There is fluctuance on right side of wound, with bruising of purple to greenish color. There is bruising without tenderness both sides of face at cheeks and perioral. ) - Neck Neck: Supple, no meningeal sign, No bony TTP, No adenopathy Results - Vitals Vitals: Vital Signs - 24 hr 01/13/20 01/13/20 11:40 13:47 Temperature 36.5 C Heart Rate 63 59 L Respiratory 17 16 Rate Blood Pressure 126/65 O2 Saturation 100 99 Oxygen O2 Source Room air Procedures - General procedure General procedure: The hematoma had a lot of soft fluctuance, so felt watery. Discussed with patient attemptint needle aspiration of fluid, and might still be thick gel and not come out, but more likely can get out part of the swelling of the hematoma and decrease tightness of forehead. She was in agreement. Local anesth with lido with epi at lower area of the fluctuance, and 18 G needle used to aspirate out 11 ml of watery dark purple serosanginous fluid. Well tolerated. PD MEDICAL DECISION MAKING - ED course Complexity details: re-evaluated patient, considered differential, d/w patient Departure - Departure Disposition: 01 Home, Self Care Clinical Impression: Traumatic hematoma of forehead Qualifiers: Encounter type: initial encounter Qualified Code(s): S00.83XA - Contusion of other part of head, initial encounter Condition: Stable Record reviewed to determine appropriate education?: Yes Instructions: ED Hematoma Follow-Up: Anthony Hollis DDS [Provider Admit Priv/Credential] - [facility] [Provider Group] Comments: Warm moist towels to the area periodically to help soften the hematoma see if it absorbs a little faster. Continue the wound care as you have been doing. Give it another week or 2 to see how well the hematoma resorbs. You could follow-up with dermatology or maxillofacial if the hematoma persists beyond that timeframe for potential further evacuation of it. Return if signs of infection develop. Discharge Date/Time: 01/13/20 13:47
== END 2020-01-13 13:47 | disposition home or self-care (01) ==
LOC: ED 11:26
DX: S00.83XA Contusion of other part of head, initial encounter (principal); X58.XXXA Exposure to other specified factors, initial encounter; E11.9 Type 2 diabetes mellitus without complications; Z79.84 Long term (current) use of oral hypoglycemic drugs
CPT/HCPCS: 10140; 99282; 99283